=== PATIENT | female | born 2000 | race Caucasian/White ===

== ENCOUNTER 2023-10-27 23:40 | Emergency (ER) | payer MEDICAID, SELFPAY ==
[2023-10-27 23:42] VITALS: BP 136/92; PULSE 96; RESP 19; TEMP 36.6; O2SAT 99; BMI 27.4
[2023-10-28 00:02] LABS: Coronavirus 19, PCR Not Detected (NotDetected); Influenza A, PCR Not Detected (NotDetected); Influenza B, PCR Not Detected (NotDetected)
--- NOTE | 2023-10-28 00:20 | [facility].EDGENADL ---
Discharge Plan Disposition Patient Disposition: Home, Self-Care Condition: Good Referrals Follow up/Referrals: Provider,Referral, [Primary Care Provider] - See instructions Clinical Impressions Clinical Impression: Viral infection, Sinusitis, Upper respiratory infection Instructions Patient Instructions: Sinus Headache, DI for Sinusitis, DI for Viral Syndrome Discharge ED Provider: Richard Henry General Adult HPI General Chief complaint: Upper Respiratory Infection Stated complaint: ear pain, congestion Time Seen by Provider: 10/27/23 23:43 Mode of Arrival: Ambulatory Source of Information: Patient Limitations: No Limitations Description of Symptoms (Recalled from ER Triage Doc. by RN): Patient reports head cold since of this week with cough and nasal congestion. Patient has been treating at home with OTC alkaseltzer cold and motrin. Patient reports for the last two days she's had bilateral ear pain that she rates 8/10 that is not relieved with medication. 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 Patient notes over the past 3 days, she has been having progressively worsening nasal congestion and over the past 2 days he started to feel congestion going up into bilateral ears causing severe pain. Patient notes that she is tried [id number] ibuprofen without any improvement of ear pain. Patient notes that her hearing sounds a little muffled from the congestion. With the ear pain, patient also notes sinus pain and head cold . No fevers, CP, SOB, AP, N/V Related Data Allergies Allergy/AdvReac Type Severity Reaction Status Date / Time ciprofloxacin Allergy Verified 10/27/23 23:52 [facility] Disclaimer: The information contained in this section may have been updated after the patient was seen, as this information can be updated by other users. Medical History (Updated 10/28/23 @ 00:23 by Richard Henry MD) No significant past medical history Social History Smoking Status: Never smoker alcohol intake: never current occupational status: employed Travel in the last 8 weeks: None ROS Obtained: Yes All systems reviewed & no additional complaints except as documented Physical Exam General General appearance: alert and in no apparent distress Head Head exam: atraumatic, normocephalic and normal inspection Eye Eye exam: Present normal appearance, PERRL and EOMI; Absent scleral icterus or nystagmus ENT ENT exam: Present normal exam, mucous membranes moist and normal external ear exam Neck Neck exam: Present normal inspection, full ROM and trachea midline Chest Chest inspection: Present normal inspection and symmetric chest wall rise; Absent tenderness Respiratory Respiratory exam: Present normal lung sounds bilaterally; Absent respiratory distress, wheezes or accessory muscle use Cardiovascular Cardiovascular exam: Present regular rate, normal rhythm and normal heart sounds Abdominal Exam Abdominal exam: Present soft; Absent distention, tenderness, guarding, rebound, rigidity, trauma, ascites or pulsatile mass Extremities Exam Extremities exam: Present normal inspection and full ROM; Absent tenderness Back Exam Back exam: Present normal inspection and full ROM; Absent tenderness Neurological Exam Neurological exam: Present alert, oriented X3, normal gait and motor sensory deficit Psychiatric Psychiatric exam: Present normal affect and normal mood Skin Skin exam: Present warm, dry and normal color Medical Decision Making Medical Records Medical records reviewed: Yes I reviewed the patient's medical records. [place] Inquiry Pt receiving controlled substance: No Vital Signs: 10/27/23 23:42 Temperature 97.9 F Temperature Source Oral Pulse Rate [Left Radial] 96 H Respiratory Rate 19 Blood Pressure [Right Arm] 136/92 H
[2023-10-28 00:33] VITALS: BP 119/88; PULSE 73; RESP 16; TEMP 36.9; O2SAT 99
== END 2023-10-28 00:36 | disposition home or self-care (01) ==
PROVIDERS: Emergency Provider Emergency Medicine
DX: J01.90 Acute sinusitis, unspecified (principal); J06.9 Acute upper respiratory infection, unspecified; H92.01 Otalgia, right ear
CPT/HCPCS: 87636; 99283